=== PATIENT | male | born 1955 ===

== ENCOUNTER → 2024-05-22 | Outpatient (CLI) | payer OTHER ==
[~2024-05-22] MED LIST: IOHEXOL 350 MG/ML 100ML IJ ONE
[2024-05-22 08:41] LABS: Anion Gap 6 (5-15); Calcium 9.6 mg/dL (8.7-10.4); Carbon Dioxide 29 mmol/L (20-31); Chloride 100 mmol/L (98-107); Sodium 135 mmol/L (136-145)
[2024-05-22 08:46] LABS: Glucose 92 mg/dL (74-106)
[2024-05-22 08:47] LABS: BUN/Creatinine Ratio 10.6 (10.0-20.0); Blood Urea Nitrogen 13 mg/dL (9-23)
--- NOTE | 2024-05-22 09:29 | DVH ---
CT CHEST, ABDOMEN AND PELVIS CLINICAL HISTORY: PRIOR CARDIOLOGY VISIT/ WORK UP TECHNIQUE: Multiple contiguous axial images of the chest, abdomen and pelvis with intravenous contras t. The images were reformatted degenerate coronal and sagittal reconstructions. 100 cc of Omnipaque 300 contrast was injected intravenously. All CT scans at this medical facility are performed using dose modulation techniques as appropriate t o a performed exam including the following:Automated exposure control was utilized; adjustment of the MA and/or KV according to patient size; and use of iterative reconstruction technique. Radiation Dose Information: CT Dose: CTDI volume is 27.6 mGy. Dose-length product is 943.26 mGy*cm FINDINGS: The CT images are degraded by motion artifact. The lungs are clear without evidence of consolidation. There is no pleural effusion or pneumothorax. There is no suspicious appearing pulmonary nodule or mass. There is no evidence of a mediastinal mass or lymphadenopathy. There is no hilar or axillary lymphad enopathy. The heart size within normal limits. There is no pericardial effusion. The liver, gallbladder, pancreas, kidneys, adrenal glands, and spleen appear within normal limits. There is no evidence of abdominal lymphadenopathy. There is no free fluid or free air. The small and large bowel loops demonstrate normal caliber. Air intermixed with stool is seen throug hout the colon. The abdominal aorta and IVC appear within normal limits. The bladder appears unremarkable for the degree of distention.. Pelvic organ appears within normal l imits. There is no evidence of a pelvic mass or lymphadenopathy. There is no free fluid collection. There is no acute osseous abnormality. IMPRESSION: 1. There is no acute process in the chest, abdomen and pelvis. HS:Y
== END | disposition home or self-care (01) ==
LOC: CT 07:40 → EEVIPCON 07:40
PROVIDERS: ATTEND Personal Emergency Response Attendant
DX: R07.9 Chest pain, unspecified (principal)
CPT/HCPCS: 36415; 71260; 74177; 80048; Q9967